=== PATIENT | male | born 1995 | race Caucasian/White ===

== ENCOUNTER 2019-12-02 23:04 | Emergency (ER) | payer BC ==
[~2019-12-02] VITALS: Ht 188 cm; Wt 81.9 kg
[2019-12-02 23:08] VITALS: BP 114/69
--- NOTE | 2019-12-02 23:26 | NUR ---
pT HERE FOR BLISTERS UNDERNEATH GLANS OF PENIS WHEN HE RETRACTS HIS FORESKIN. PT REPORTS PAINFUL URINATION WELL. 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 PT VSS, DENIES DISCHARGE OR DRIP .
--- NOTE | 2019-12-02 23:53 | NUR ---
ERP TO ROOM FOR EVAL
[2019-12-02 23:54] LABS: MICROSCOPIC AUTO
[2019-12-03] MEDS ORDERED: AZITHROMYCIN 500 MG TABLET ONE (00:10)
[2019-12-03] MEDS ORDERED: LIDOCAINE-MPF 1%, 2ML ONE (00:10)
[2019-12-03] MEDS ORDERED: CEFTRIAXONE 250 MG ONE (00:10)
--- NOTE | 2019-12-03 00:17 | NUR ---
PATIENT MEDICATED PER EMAR, TOLERAED WELL
[2019-12-03] MEDS ORDERED: CEFTRIAXONE 1,000 MG IM ONE (00:30)
[2019-12-03] MEDS ORDERED: AZITHROMYCIN 500 MG TABLET PO ONE (00:30)
--- NOTE | 2019-12-03 00:32 | NUR ---
Patient given discharge instructions and they have confirmed that they understand the instructions. Patient ambulatory with steady gait.
== END 2019-12-03 00:34 | disposition home or self-care (01) ==
LOC: ED 12-03 00:28
DX: A56.01 Chlamydial cystitis and urethritis (principal); A59.03 Trichomonal cystitis and urethritis; A60.01 Herpesviral infection of penis; A64 Unspecified sexually transmitted disease; R30.0 Dysuria
CPT/HCPCS: 81001; 87086; 87491; 87591; 96372; 99283; J0696